=== PATIENT | female | born 1940 | race Caucasian/White ===

== ENCOUNTER 2022-04-25 13:17 | Outpatient (CLI) | payer MEDICARE, BC | END 2022-04-25 13:18 | disposition home or self-care (01) | LOC: CSHCT 13:17 | PROVIDERS: ATTEND Internal Medicine Cardiovascular Disease | DX: Z01.818 Encounter for other preprocedural examination (principal); Z01.810 Encounter for preprocedural cardiovascular examination; I48.0 Paroxysmal atrial fibrillation; R29.6 Repeated falls; Z20.822 Contact with and (suspected) exposure to COVID-19 | CPT/HCPCS: 71275; 80053; 81015; 82565; 85027; 85610; 85730; 86850; 86900; 86901; 87811; 93005; 93010 ==